=== PATIENT | male | born 1965 | race Caucasian/White ===

== ENCOUNTER 2017-08-19 12:36 | Inpatient (IN) | payer BC ==
[2017-08-19] VITALS (33 sets, daily range): BP systolic 106; BP diastolic 52; PULSE 126; O2SAT 27–86
[2017-08-19 12:54] LABS: HEMATOCRIT 54.9 % (42.0-52.0); HEMOGLOBIN 17.6 g/dl (13.5-18.0); MEAN CELL VOLUME 92 fl (80.0-100.0); MEAN CORPUSCULAR HEMOGLOBIN 29 pg (27.0-31.0); MEAN CORPUSCULAR HGB CONC 32 g/dl (33.0-37.0); MEAN PLATELET VOLUME 9.2 fl (7.4-10.4); PLATELET COUNT 232 K/mm3 (130-400); RED BLOOD COUNT 5.99 M/mm3 (4.20-5.60); REDCELL DISTRIBUTION WIDTH-CV 13.2 % (11.5-14.5); WHITE BLOOD COUNT 17.2 K/mm3 (4.8-10.8)
[2017-08-19 12:55] LABS: ADD PATHOLOGY DIFF REVIEW NO
[2017-08-19 12:58] LABS: INR 1.3 (0.8-3.0); PROTHROMBIN TIME 14.9 SECONDS (9.7-12.8)
[2017-08-19 13:01] LABS: PARTIAL THROMBOPLASTIN TIME 24.9 SECONDS (26.0-37.0)
[2017-08-19 13:07] LABS: ADJUSTED CALCIUM 9.2 mg/dL (8.4-10.2); ALBUMIN 4.6 gm/dL (3.5-5.0); BILIRUBIN,TOTAL 1.1 mg/dL (0.0-1.0); CALCIUM 9.7 mg/dL (8.4-10.2); CREATININE, serum 1.6 mg/dL (0.66-1.25); MAGNESIUM 2.5 mg/dL (1.6-2.3); POTASSIUM 3.8 mmol/L (3.4-5.0); TOTAL PROTEIN 7.9 gm/dL (6.4-8.2)
[2017-08-19 13:20] LABS: BAND 2 % (0-10); EOSINOPHIL 1 % (0-4); NEUTROPHILS 50 % (42.0-75.2); TOTAL CELLS COUNTED 100
[2017-08-19 13:21] LABS: TROPONIN-I 0.067 ng/mL (0.000-0.034)
[2017-08-19 13:22] LABS: TOXIC GRANULATION PRESENT
[2017-08-19 13:26] LABS: PLATELET ESTIMATE NORMAL (NORMAL)
[2017-08-19 15:48] LABS: HEMATOCRIT 42.3 % (42.0-52.0); MEAN CELL VOLUME 94 fl (80.0-100.0); MEAN CORPUSCULAR HEMOGLOBIN 30 pg (27.0-31.0); MEAN CORPUSCULAR HGB CONC 32 g/dl (33.0-37.0); MEAN PLATELET VOLUME 9.1 fl (7.4-10.4); PLATELET COUNT 277 K/mm3 (130-400); REDCELL DISTRIBUTION WIDTH-CV 13.3 % (11.5-14.5)
[2017-08-19 16:06] LABS: ADD PATHOLOGY DIFF REVIEW NO; HEMOGLOBIN 13.5 g/dl (13.5-18.0); WHITE BLOOD COUNT 22.8 K/mm3 (4.8-10.8)
[2017-08-19 16:13] LABS: BAND 26 % (0-10); NEUTROPHILS 42 % (42.0-75.2); PLATELET ESTIMATE NORMAL (NORMAL); TOTAL CELLS COUNTED 100
[2017-08-19 16:18] LABS: PROTHROMBIN TIME 22.3 SECONDS (9.7-12.8)
[2017-08-19 16:21] LABS: ADJUSTED CALCIUM 8.3 mg/dL (8.4-10.2); ALBUMIN 2.6 gm/dL (3.5-5.0); BILIRUBIN,TOTAL 1.3 mg/dL (0.0-1.0); CALCIUM 7.2 mg/dL (8.4-10.2); CREATININE, serum 1.58 mg/dL (0.66-1.25); POTASSIUM 3.9 mmol/L (3.4-5.0); TOTAL PROTEIN 5.1 gm/dL (6.4-8.2)
[2017-08-19] MEDS ORDERED: FLONASE NASAL S16 GM NS (17:13)
[2017-08-19 18:02] LABS: ARTERIAL BLD GAS O2 SATURATION 47.8 % (92-100); ARTERIAL BLD GAS TCO2 CT 20.7; ARTERIAL BLOOD GAS BASE EXCESS -20.6 (-2-2); ARTERIAL BLOOD GAS HCO3 16.8 meq/L (22-26); OXYHEMOGLOBIN 47.4 %
[2017-08-19 18:03] LABS: ARTERIAL BLOOD GAS pH 6.75 (7.35-7.45)
[2017-08-19 18:04] LABS: ABG VENTILATOR TIDAL VOLUME 500 mL; ARTERIAL BLOOD GAS PO2 46.3 mmHg (80-100); ATS? YES
== END 2017-08-19 22:29 | disposition expired | DRG 208 ==
LOC: EDBD 12:36 → COL.ER 12:36 → ICU 15:57
PROVIDERS: Emergency Medicine; Physician Assistant
PROC: 3E03317 Introduction of Other Thrombolytic into Peripheral Vein, Percutaneous Approach (ICD-10-PCS; principal; 2017-08-19)
PROC: 5A1935Z Respiratory Ventilation, Less than 24 Consecutive Hours (ICD-10-PCS; 2017-08-19)
PROC: 0BH17EZ Insertion of Endotracheal Airway into Trachea, Via Natural or Artificial Opening (ICD-10-PCS; 2017-08-19)
DX: I26.99 Other pulmonary embolism without acute cor pulmonale (principal); J96.01 Acute respiratory failure with hypoxia; S27.9XXA Injury of unspecified intrathoracic organ, initial encounter; S36.892A Contusion of other intra-abdominal organs, initial encounter; S26.00XA Unspecified injury of heart with hemopericardium, initial encounter; E87.2 Acidosis; S22.20XA Unspecified fracture of sternum, initial encounter for closed fracture; S22.41XA Multiple fractures of ribs, right side, initial encounter for closed fracture; W18.30XA Fall on same level, unspecified, initial encounter
CPT/HCPCS: A4217; J0171; J0461; J1265; J1644; J3010; J3101; Q9967